=== PATIENT | female | born 1950 | race Caucasian/White ===

== ENCOUNTER 2016-11-13 07:53 | Day surgery (SDC) | payer MEDICARE ==
--- NOTE | ~2016-11-13 | EGD ---
EGD REPORT [facility] [address] [address] NAME: ALEXEY JI : [birth year] STATUS : REG [facility] [place] PAT#: [id number] AGE: 66 ADM/REG DATE : 11/13/16 MR#: [id number] REPORT SERV DATE: 11/13/16 DICTATED BY: ISELA WEBSTER DATE: 11/13/16 REPORT STATUS : Draft [facility]: [facility] DATE: 11/13/16 [facility] Patient Name: Alexey Ji Date of : 1950 Attending MD: ISELA WEBSTER, Procedure Date No Time: 11/13/2016 Procedure: Upper GI endoscopy Indications: Abdominal pain, Heartburn, Esophageal reflux symptoms that persist despite appropriate therapy Referring MD: LETY IVY II Medicines: Propofol per Anesthesia Complications: No immediate complications. Estimated blood loss: None. Procedure: Pre-Anesthesia Assessment: - ASA Grade Assessment: III - A patient with severe systemic disease. After obtaining informed consent, the endoscope was passed under direct vision. Throughout the procedure, the patient's blood pressure, pulse, and oxygen saturations were monitored continuously. The GIF [id number] was introduced through the mouth, and advanced to the second part of duodenum. The upper GI endoscopy was accomplished with ease. The patient tolerated the procedure well. Findings: The examined esophagus was normal. The Z-line was found 40 cm from the incisors. Diffuse mild inflammation characterized by congestion (edema) and erythema was found in the gastric body and in the gastric antrum. Biopsies were taken with a cold forceps for Helicobacter pylori testing. Estimated blood loss: none. The duodenal bulb and 2nd part of the duodenum were normal. Impression: - Normal esophagus. - Z-line 40 cm from the incisors. - Gastritis. Biopsied. - Normal duodenal bulb and 2nd part of the duodenum. Recommendation: - Patient has a contact number available for emergencies. The signs and symptoms of potential delayed complications were discussed with the patient. Return to normal activities tomorrow. Written discharge instructions were provided to the patient. - Regular diet. - Discharge patient to home (with escort). EGD REPORT [address] [address] NAME: ALEXEY JI : [birth year] STATUS : REG [facility] [place] PAT#: [id number] AGE: 66 ADM/REG DATE : 11/13/16 MR#: [id number] REPORT SERV DATE: 11/13/16 DICTATED BY: ISELA WEBSTER DATE: 11/13/16 REPORT STATUS : Draft TRANSCRIBED BY: [employer] DATE: 11/13/16 - Continue present medications. - Use Protonix (pantoprazole) 40 mg PO daily. - Follow an antireflux regimen. - No aspirin, ibuprofen, naproxen, or other non-steroidal anti-inflammatory drugs. - Await pathology results. - Return to GI clinic in 4 weeks. Procedure Code(s): --- Professional --- 15339, Esophagogastroduodenoscopy, flexible, transoral; with biopsy, single or multiple Diagnosis Code(s): --- Professional --- K29.70, Gastritis, unspecified, without bleeding R10.9, Unspecified abdominal pain R12, Heartburn K21.9, Gastro-esophageal reflux disease without esophagitis CPT copyright 2013 [employer]. All rights reserved. The codes documented in this report are preliminary and upon cable engineer outside plant review may be revised to meet current compliance requirements. ISELA WEBSTER, 11/13/2016 10:07 AM This report has been signed electronically. Number of Addenda: 0 Note Initiated On: 11/13/2016 9:18 AM Scope Withdrawal Time 0 hours 0 minutes 0 seconds [id number] [place] [id number]
--- NOTE | ~2016-11-13 | EGD ---
EGD REPORT [facility] [address] [address] NAME: ALEXEY JI : [birth year] [place] [facility] [place] [id number] AGE: 66 ADM/REG DATE : 11/13/16 MR#: [id number] REPORT SERV DATE: 11/13/16 DICTATED BY: ISELA WEBSTER DATE: 11/13/16 REPORT STATUS : Draft TRANSCRIBED BY: [facility] DATE: 11/13/16 Endoscopy Center Patient Name: Alexey Ji Date of : 1950 Attending MD: ISELA WEBSTER, Procedure Date No Time: 11/13/2016 Procedure: Colonoscopy Indications: Lower abdominal pain, Change in bowel habits Referring MD: LETY IVY II Medicines: Propofol per Anesthesia Complications: No immediate complications. Estimated blood loss: Minimal. Procedure: Pre-Anesthesia Assessment: - ASA Grade Assessment: III - A patient with severe systemic disease. After I obtained informed consent, the scope was passed under direct vision. Throughout the procedure, the patient's blood pressure, pulse, and oxygen saturations were monitored continuously. The [id number] was introduced through the anus and advanced to the cecum, identified by appendiceal orifice and ileocecal valve. The colonoscopy was somewhat difficult due to significant looping in the ascending. Successful completion of the procedure was aided by applying abdominal pressure. The patient tolerated the procedure well. The quality of the bowel preparation was adequate to identify polyps. Findings: The perianal exam was abnormal. Findings include skin tags. Two sessile polyps were found in the proximal ascending colon and in the cecum. The polyps were 5 mm in size. These polyps were removed with a cold snare. Resection and retrieval were complete. Estimated blood loss was minimal. Impression: - Perianal skin tags found on perianal exam. - Two 5 mm polyps in the ascending colon and in the cecum. Resected and retrieved. Recommendation: - Patient has a contact number available for emergencies. The signs and symptoms of potential delayed complications were discussed with the patient. Return to normal activities tomorrow. Written discharge instructions were provided to the patient. - Regular diet. EGD REPORT [address] [address] NAME: ALEXEY JI : [birth year] [place]US [place] [facility] [place] [id number] AGE: 66 ADM/REG DATE : 11/13/16 MR#: [id number] REPORT SERV DATE: 11/13/16 DICTATED BY: ISELA WEBSTER DATE: 11/13/16 REPORT STATUS : Draft TRANSCRIBED BY: [employer] DATE: 11/13/16 - Discharge patient to home (with escort). - Continue present medications. - Await pathology results. - Repeat colonoscopy in 5 years for surveillance. Procedure Code(s): --- Professional --- 06909, Colonoscopy, flexible, proximal to splenic flexure; with removal of tumor(s), polyp(s), or other lesion(s) by snare technique Diagnosis Code(s): --- Professional --- K64.4, Residual hemorrhoidal skin tags D12.2, Benign neoplasm of ascending colon D12.0, Benign neoplasm of cecum R10.30, Lower abdominal pain, unspecified R19.4, Change in bowel habit CPT copyright 2013 [employer]. All rights reserved. The codes documented in this report are preliminary and upon dip tanker review may be revised to meet current compliance requirements. ISELA WEBSTER, 11/13/2016 10:38 AM This report has been signed electronically. Number of Addenda: 0 Note Initiated On: 11/13/2016 9:17 AM Scope Withdrawal Time 0 hours 8 minutes 58 seconds [id number] [place] [id number]
[~2016-11-13 07:53] MED LIST: CAT1 PO; COUMADIN3 MG PO; GLUCOPHAGE1000 MG PO; LOP100 PO; MULTIVITAMI1 PO; NORCO1 TA1 PO; NORV10 PO; PCET PO; PROBIOTIC; XANAX XR1 MG PO
== END 2016-11-13 23:59 | disposition home or self-care (01) ==
LOC: DMU 07:53
PROVIDERS: Internal Medicine Gastroenterology
PROC: 0DBH8ZX Excision of Cecum, Via Natural or Artificial Opening Endoscopic, Diagnostic (ICD-10-PCS; 2016-11-13)
PROC: 0DB68ZX Excision of Stomach, Via Natural or Artificial Opening Endoscopic, Diagnostic (ICD-10-PCS; principal; 2016-11-13 10:30)
PROC: 0DBK8ZX Excision of Ascending Colon, Via Natural or Artificial Opening Endoscopic, Diagnostic (ICD-10-PCS; 2016-11-13 10:30)
DX: D12.2 Benign neoplasm of ascending colon (principal); D12.0 Benign neoplasm of cecum; K29.50 Unspecified chronic gastritis without bleeding; I10 Essential (primary) hypertension; G47.33 Obstructive sleep apnea (adult) (pediatric); K64.4 Residual hemorrhoidal skin tags; K21.9 Gastro-esophageal reflux disease without esophagitis; E11.9 Type 2 diabetes mellitus without complications; I48.91 Unspecified atrial fibrillation; Z90.49 Acquired absence of other specified parts of digestive tract; Z96.651 Presence of right artificial knee joint
CPT/HCPCS: 82962; 88305